=== PATIENT | female | born 1975 | race Caucasian/White ===

== ENCOUNTER 2016-10-17 09:26 | Inpatient (IN) | payer OTHER ==
[~2016-10-17] VITALS: Ht 162.6 cm; Wt 67.3 kg
[2016-10-17] VITALS (7 sets, daily range): BP systolic 95–127; BP diastolic 61–84; PULSE 55–73; TEMP 97.1–99.4
[2016-10-17] MEDS ORDERED: BENTYL 20MG20 MG/TAB PO (10:17)
[2016-10-17] MEDS ORDERED: NORCO 325 MG-51 TAB PO (10:18)
[2016-10-17] MEDS ORDERED: MAG-AL PLUS 3030 ML PO (10:18)
[2016-10-17] MEDS ORDERED: COLACE 100100 MG/CAP PO (10:18)
[2016-10-17] MEDS ORDERED: MOBIC15 MG PO (10:19)
[2016-10-17] MEDS ORDERED: SINGULAIR 110 MG/TAB PO (10:19)
[2016-10-17] MEDS ORDERED: AMBIEN 10MG10 MG PO (10:19)
[2016-10-17 13:57] LABS: ADJUSTED CALCIUM 9.1 mg/dL (8.4-10.2); ALBUMIN 3.8 gm/dL (3.5-5.0); BILIRUBIN,TOTAL 0.7 mg/dL (0.0-1.0); CALCIUM 8.9 mg/dL (8.4-10.2); CREATININE, serum 0.62 mg/dL (0.52-1.25); TOTAL PROTEIN 7.2 gm/dL (6.4-8.2)
[2016-10-17 14:18] LABS: BILIRUBIN,DIRECT 0.4 mg/dL (0.0-0.4)
[2016-10-18] VITALS (7 sets, daily range): BP systolic 108–125; BP diastolic 61–77; PULSE 66–79; TEMP 98.4–99
[2016-10-18 09:59] LABS: HEMATOCRIT 38.8 % (37.0-47.0); HEMOGLOBIN 13.1 g/dl (12.5-16.0); MEAN CELL VOLUME 90 fl (80.0-100.0); MEAN CORPUSCULAR HEMOGLOBIN 30 pg (27.0-31.0); MEAN CORPUSCULAR HGB CONC 34 g/dl (33.0-37.0); PLATELET COUNT 262 K/mm3 (130-400); RED BLOOD COUNT 4.32 M/mm3 (4.10-5.30); REDCELL DISTRIBUTION WIDTH-CV 12.9 % (11.5-14.5); WHITE BLOOD COUNT 7.3 K/mm3 (4.8-10.8)
[2016-10-18 10:12] LABS: ALBUMIN 3.7 gm/dL (3.5-5.0); BILIRUBIN,TOTAL 0.9 mg/dL (0.0-1.0); CALCIUM 8.8 mg/dL (8.4-10.2); CREATININE, serum 0.69 mg/dL (0.52-1.25); POTASSIUM 3.7 mmol/L (3.4-5.0); TOTAL PROTEIN 6.9 gm/dL (6.4-8.2)
[2016-10-19] VITALS (12 sets, daily range): BP systolic 108–134; BP diastolic 68–78; PULSE 68–90; TEMP 98–98.9
[2016-10-19] MEDS ORDERED: PERCOCET 325 MG1 TA2 PO (14:43)
== END 2016-10-19 17:56 | disposition home or self-care (01) | DRG 417 ==
LOC: SDCO 09:26 → JCC 12:30 → SDCO 16:48 → JCC 10-19 17:56
PROVIDERS: Internal Medicine Gastroenterology; Surgery
PROC: 0FC98ZZ Extirpation of Matter from Common Bile Duct, Via Natural or Artificial Opening Endoscopic (ICD-10-PCS; 2016-10-17)
PROC: BF141ZZ Fluoroscopy of Gallbladder, Bile Ducts and Pancreatic Ducts using Low Osmolar Contrast (ICD-10-PCS; 2016-10-19)
PROC: 0FT44ZZ Resection of Gallbladder, Percutaneous Endoscopic Approach (ICD-10-PCS; principal; 2016-10-19 11:30)
DX: K80.10 Calculus of gallbladder with chronic cholecystitis without obstruction (principal); K85.80 Other acute pancreatitis without necrosis or infection
CPT/HCPCS: C1769; J0690; J1100; J1170; J1650; J1885; J2175; J2270; J2405; J2550; J2704; J2765; J3010; J7030; J7120; Q9967